=== PATIENT | female | born 1985 ===

== ENCOUNTER 2017-02-26 16:55 | Emergency (ER) | payer OTHER ==
[2017-02-26 16:55] VITALS: BMI 45.7
[2017-02-26 17:05] VITALS: BP 111/76; PULSE 74; RESP 18; TEMP 98.4; O2SAT 100
--- NOTE | 2017-02-26 17:32 | C.PDOC ---
History Of Present Illness 31 year old patient, with a past medical history of hypertension, presents to the ED complaining of left knee injury s/p fall. Patient reports she tripped and fell on uneven pavement yesterday. The pain is worse with walking. She took Tylenol with no relief. Patient denies any fever, numbness, or weakness. Time Seen by Provider: 02/26/17 17:15 Chief Complaint (Nursing): Lower Extremity Problem/Injury History Per: Patient History/Exam Limitations: no limitations Onset/Duration Of Symptoms: Days (1) Current Symptoms Are (Timing): Still Present Severity: Mild Pain Scale Rating Of: 3 Recent travel outside of the [place]: No - Knee Description Of Injury: Fell Alleviating Factor(s): OTC Pain Medication Past Medical History Reviewed: Historical Data, Nursing Documentation, Vital Signs Vital Signs: Last Vital Signs Temp 98.4 F 02/26/17 17:02 Pulse 74 02/26/17 17:02 Resp 18 02/26/17 17:02 BP 111/76 02/26/17 17:02 Pulse Ox 100 02/26/17 17:46 - Medical History PMH: HTN - [facility] Procedures EXCISION OF BILATERAL FALLOPIAN TUBES, OPEN APPROACH (12/10/16) EXTRACTION OF POC, LOW CERVICAL, OPEN APPROACH (12/10/16) Family History: States: Unknown Family Hx - Social History Hx Tobacco Use: No Hx Alcohol Use: No Hx Substance Use: No - Immunization History Hx Tetanus Toxoid Vaccination: No Hx Influenza Vaccination: No Hx Pneumococcal Vaccination: No Review Of Systems Except As Marked, All Systems Reviewed And Found Negative. Constitutional: Negative for: Fever Musculoskeletal: Positive for: Other (left knee) Neurological: Negative for: Weakness, Numbness Physical Exam - Physical Exam Appears: Non-toxic, No Acute Distress Skin: Warm, Dry Head: Atraumatic, Normacephalic Eye(s): bilateral: Normal Inspection Neck: Normal ROM, Supple Chest: Symmetrical Gastrointestinal/Abdominal: Other (obese) Extremity: Normal ROM, No Calf Tenderness, No Deformity, No Swelling, Other ( left knee: (-)swelling (-)ecchymosis (-)abrasions (+)mild tenderness to the anterior aspect of the left knee (+)normal ROM (-)effusion ) Neurological/Psych: Oriented x3, Normal Speech Gait: Steady ED Course And Treatment O2 Sat by Pulse Oximetry: 100 (RA) Pulse Ox Interpretation: Normal - Other Rad left knee X-Ray: Interpreted by Me, Viewed By Me Interpretation: No fractures, dislocations, or effusion. Medical Decision Making Medical Decision Making: Impression: Left knee injury Plan: * Left knee x-ray * Motrin * Reassess and disposition Progress: Xray reviewed with no acute fracture, dislocation or effusion Explain results to patient and advise motrin for pain as needed. Disposition Counseled Patient/Family Regarding: Studies Performed, Diagnosis, Need For Followup - Disposition Disposition: HOME/ ROUTINE Disposition Time: 17:40 Condition: STABLE Additional Instructions: [place]or radiografa es normal, sin fractura. Por favor aplique hielo a la agustina 15-20 minutos dos o van veces al da. [place] Motrin u otro medicamento anti- inflamatorio, con alimentos para no molestar el estmago. Seguir con ortopedia si el dolor persiste erlin riya semana. Instructions: Knee Pain (ED) Print Language: [place] - Clinical Impression Clinical Impression: Contusion of knee - PA / [employer] / Resident Statement MD/DO has reviewed & agrees with the documentation as recorded. - Scribe Statement The provider has reviewed the documentation as recorded by the Scribe Alicia Killian All medical record entries made by the Scribe were at my direction and personally dictated by me. I have reviewed the chart and agree that the record accurately reflects my personal performance of the history, physical exam, medical decision making, and the department course for this patient. I have also personally directed, reviewed, and agree with the discharge instructions and disposition.
--- NOTE | 2017-02-27 07:58 | RAD ---
PROCEDURE: Left Knee Radiographs. HISTORY: Pain. COMPARISON: None. FINDINGS: BONES: Normal. No fracture. JOINTS: Normal. No osteoarthritis. JOINT EFFUSION: None. OTHER FINDINGS: None. IMPRESSION: No evidence of acute fracture or dislocation.
== END 2017-02-26 17:43 | disposition home or self-care (01) ==
LOC: C.ER 16:55
DX: S80.02XA Contusion of left knee, initial encounter (principal); W01.0XXA Fall on same level from slipping, tripping and stumbling without subsequent striking against object, initial encounter; Y92.480 Sidewalk as the place of occurrence of the external cause